=== PATIENT | female | born 1985 | race Caucasian/White ===

== ENCOUNTER 2022-07-13 15:16 | Emergency (ER) | payer BC, OTHER ==
[~2022-07-13] VITALS: Ht 162 cm; Wt 74.0 kg
[2022-07-13 16:00] LABS: BASOPHILS % (AUTO) 0 % (0-10); EOSINOPHILS % (AUTO) 0 % (0-10); HEMATOCRIT 41 % (35-52); HEMOGLOBIN 13.7 g/dL (11.5-16.0); LYMPHOCYTES # (AUTO) 2.7 10^3/uL (1.0-4.0); LYMPHOCYTES % (AUTO) 26 % (12-44); MEAN CORPUSCULAR HEMOGLOBIN 32 pg (25-34); MEAN CORPUSCULAR HGB CONC 33 g/dL (32-36); MEAN CORPUSCULAR VOLUME 95 fL (80-99); MEAN PLATELET VOLUME 10.3 fL (9.0-12.2); MONOCYTES # (AUTO) 0.4 10^3/uL (0.0-1.0); MONOCYTES % (AUTO) 4 % (0-12); NEUTROPHILS # (AUTO) 7.2 10^3/uL (1.8-7.8); NEUTROPHILS % (AUTO) 69 % (42-75); PLATELET COUNT 331 10^3/uL (130-400); WHITE BLOOD COUNT 10.4 10^3/uL (4.3-11.0)
[2022-07-13] MEDS ORDERED: ASPIRIN 81 MG CHEW (CHILDREN'S ASA) PO ONE (16:00)
--- NOTE | 2022-07-13 16:01 | ED Chest Pain ---
General Chief Complaint: Chest Pain Stated Complaint: CHEST TIGHTNESS/PRESSURE/ELEV BP Nursing Triage Note: TO ROOM 08 WITH COMPLAINTS OF CHEST PAIN STARTING THIS AM. Source: patient Exam Limitations: no limitations History of Present Illness Date Seen by Provider: July 13, 2022 Time Seen by Provider: 15:36 Initial Comments Here with report of chest tightness/squeezing that has been going on pretty much all day. She worked all day and then mentioned it at the end of her shift. She had recommendations to follow-up here. 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 She states that she is not sure if this is a chest pain issue or if it is her anxiety. She does have history of anxiety that she does not take any medicines for it she is a little fearful of that. She is new to the area and has not established primary care yet. She denies fevers, chills, nausea, vomiting, sweating or breathing problems. No recent surgery, long plane trips or trauma. No history of blood clots. She does not smoke. No significant family history of cardiac events. Does admit to fatigue for the last month but states that that may be stress related as well. Timing/Duration: other (8 hours) Severity/Quality: mild, moderate, pressure, tightness Location: central Radiation: no radiation Activities at Onset: none Prior CP/Workup: no prior cardiac workup Modifying Factors: improves with rest ASA po [employer]: No NTG SL [employer]: No Associated Symptoms: No back pain; fatigue (For the last month); No fever/chil ls, No nausea/vomiting, No shortness of breath, No syncope, No weakness Allergies and Home Medications Allergies Coded Allergies: No Known Drug Allergies (Unverified , 07/13/22) Patient Home Medication List Home Medication List Reviewed: Yes Review of Systems Review of Systems Constitutional: see HPI; No chills, No fever EENTM: No Symptoms Reported Respiratory: Denies Cough, Denies Shortness of Air Cardiovascular: Chest Pain; Denies Edema, Denies Lightheadedness Gastrointestinal: Denies Nausea, Denies Vomiting Genitourinary: No Symptoms Reported Musculoskeletal: no symptoms reported Skin: no symptoms reported Psychiatric/Neurological: Anxiety; Denies Weakness Past Saewmqp-Qsjbie-Hofjvz Hx Patient Social History Tobacco Use?: No Substance use?: No Alcohol Use?: No Past Medical History Surgeries: No Respiratory: No Cardiac: No Neurological: No Genitourinary: No Gastrointestinal: No Family Medical History Reviewed Nursing Family Hx Physical Exam Vital Signs Vital Signs - First Documented 07/13/22 07/13/22 15:20 15:57 Temp 36.3 Pulse 99 Resp 16 B/P (MAP) 151/94 (113) Pulse Ox 99 O2 Delivery Room Air Capillary Refill : Height, Weight, BMI Height: '" Weight: lbs. oz. kg; 28.00 BMI Method: General Appearance: No Apparent Distress, WD/WN HEENT: PERRL/EOMI, Pharynx Normal Neck: Non Tender, Supple Respiratory: Lungs Clear, Normal Breath Sounds Cardiovascular: Regular Rate, Rhythm, No Murmur, Other (Heart rate initially mid 90s but then went to low 80s after conversation and reassurance.) Gastrointestinal: Non Tender, Soft Extremity: Normal Range of Motion, Non Tender Neurologic/Psychiatric: Alert, Oriented x3 Skin: Normal Color, Warm/Dry Progress/Results/Core Measures Results/Orders Lab Results Laboratory Tests Test 07/13/22 15:27 Range/Units White Blood Count 10.4 4.3-11.0 10^3/uL Red Blood Count 4.35 3.80-5.11 10^6/uL Hemoglobin 13.7 11.5-16.0 g/dL Hematocrit 41 35-52 % Mean Corpuscular Volume 95 80-99 fL Mean Corpuscular Hemoglobin 32 25-34 pg Mean Corpuscular Hemoglobin Concent 33 32-36 g/dL Red Cell Distribution Width 12.4 10.0-14.5 % Platelet Count 331 130-400 10^3/uL Mean Platelet Volume 10.3 9.0-12.2 fL Immature Granulocyte % (Auto) 1 % Neutrophils (%) (Auto) 69 42-75 % Lymphocytes (%) (Auto) 26 12-44 % Monocytes (%) (Auto) 4 0-12 % Eosinophils (%) (Auto) 0 0-10 % Basophils (%) (Auto) 0 0-10 % Neutrophils # (Auto) 7.2 1.8-7.8 10^3/uL Lymphocytes # (Auto) 2.7 1.0-4.0 10^3/uL Monocytes # (Auto) 0.4 0.0-1.0 10^3/uL Eosinophils # (Auto) 0.0 0.0-0.3 10^3/uL Basophils # (Auto) 0.0 0.0-0.1 10^3/uL Immature Granulocyte # (Auto) 0.1 0.0-0.1 10^3/uL Prothrombin Time 13.3 12.2-14.7 SEC INR Comment 1.0 0.8-1.4 Activated Partial Thromboplast Time 28 24-35 SEC D-Dimer 0.29 0.00-0.49 UG/ML Sodium Level 138 135-145 MMOL/L Potassium Level 3.5 L 3.6-5.0 MMOL/L Chloride Level 106 98-107 MMOL/L Carbon Dioxide Level 22 21-32 MMOL/L Anion Gap 10 5-14 MMOL/L Blood Urea Nitrogen 10 7-18 MG/DL Creatinine 0.76 0.60-1.30 MG/DL Estimat Glomerular Filtration Rate 103 BUN/Creatinine Ratio 13 Glucose Level 88 70-105 MG/DL Calcium Level 9.1 8.5-10.1 MG/DL Corrected Calcium 8.7 8.5-10.1 MG/DL Magnesium Level 2.0 1.6-2.4 MG/DL Total Bilirubin 1.0 0.1-1.0 MG/DL Aspartate Amino Transf (AST/SGOT) 17 5-34 U/L Alanine Aminotransferase (ALT/SGPT) 19 0-55 U/L Alkaline Phosphatase 58 40-136 U/L Myoglobin 19.4 10.0-92.0 NG/ML Troponin I < 0.028 <0.028 NG/ML Total Protein 7.6 6.4-8.2 GM/DL Albumin 4.5 3.2-4.5 GM/DL My Orders Orders - MELY AREVALO MD Ekg Tracing (07/13/22 15:20) Cbc With Automated Diff (07/13/22 15:53) Magnesium (07/13/22 15:53) Chest 1 View, Ap/Pa Only (07/13/22 15:53) Comprehensive Metabolic Panel (07/13/22 15:53) Myoglobin Serum (07/13/22 15:53) Protime With Inr (07/13/22 15:53) Partial Thromboplastin Time (07/13/22 15:53) O2 (07/13/22 15:53) Monitor-Rhythm Ecg Trace Only (07/13/22 15:53) Lipid Panel (07/14/22 06:00) Ed Iv/Invasive Line Start (07/13/22 15:53) Fibrin Degradation Products (07/13/22 15:53) Troponin I [place] (07/13/22 15:53) Aspirin Chewable Tablet (Baby Aspirin Ch (07/13/22 16:00) Alprazolam Tablet (Xanax Tablet) (07/13/22 17:44) Medications Given in ED Current Medications Medications Dose Ordered Sig/Lacho Route Start Time Stop Time Status Last Admin Dose Admin Aspirin 324 mg ONCE ONCE PO 07/13/22 16:00 07/13/22 16:01 DC 07/13/22 15:57 324 MG Vital Signs/I&O 07/13/22 07/13/22 15:20 15:57 Temp 36.3 Pulse 99 Resp 16 B/P (MAP) 151/94 (113) Pulse Ox 99 100 O2 Delivery Room Air Blood Pressure Mean: 113 Progress Progress Note : Progress Note Seen and evaluated. IV, labs, EKG and chest x-ray ordered. ASA 324 mg p.o. ordered. Labs include CBC, CMP, troponin and D-dimer as well as myoglobin. Patient low risk for cardiac event but we will evaluate current event with labs. Monitor patient. Differential diagnosis includes cardiac event, pulmonary embolism, anxiety 6: Chest x-ray shows no acute findings on my interpretation. Labs in total are unremarkable with CBC that is grossly normal, CMP grossly normal with normal LFTs and normal serum creatinine. Coags are normal. D-dimer is negative. Troponin and myoglobin are negative. Overall she is feeling better. She still feels a little anxious. Xanax 0.5 mg p.o. ordered. Patient's mother is here. Mother will take her home. I do not see any indication for admission or further evaluation at this point. I did discuss with her about follow-up with cardiology and I will give her the name of 2 of the coordinator cardiopulmonary services. Also discussed follow-up with primary care for further discussion of anxiety and depression. She states that she will. Discharged home with return precautions. Patient verbalized understanding of instructions and agreement with plan. Initial ECG Impression Date: July 13, 2022 Initial ECG Impression Time: 15:26 Initial ECG Rate: 113 Comment Sinus tachycardia with normal axis. No evidence of ST elevation IA. Wandering baseline noted. Interpreted by me. Diagnostic Imaging Diagonstic Imaging: Xray Plain Films/CT/US/NM/MRI: chest Comments [facility] [place], [place] NAME: ISELA STOCKTON [facility] REC#: [id number] PT STATUS: REG ER : 1985 PHYSICIAN: MELY AREVALO MD ADMIT DATE: 07/13/22/ER Signed Date of Exam:07/13/22 CHEST 1 VIEW, AP/PA ONLY CLINICAL INDICATION: Patient with chest pain. EXAM: Portable chest x-ray upright view. COMPARISON: None. FINDINGS: Lungs/pleura: Lungs are clear. There is no pneumothorax. There is no pleural effusion. Mediastinum: Unremarkable. Pulmonary vasculature: Unremarkable. Heart: Unremarkable. Bones/extrathoracic soft tissue: Unremarkable. IMPRESSION: There is no radiographic evidence of acute cardiopulmonary process. Dictated by: Dictated on workstation # [id number] Dict: 07/13/22 1615 Trans: 07/13/22 1739 CVB [id number] Interpreted by: SOLIS SHUKLA MD Electronically signed by: SOLIS SHUKLA MD 07/13/22 1739 Departure Impression Primary Impression: Chest pain Qualified Codes: R07.9 - Chest pain, unspecified Additional Impression: Anxiety Disposition: 01 HOME, SELF-CARE Condition: Improved Departure-Patient Inst. Decision time for Depature: 17:51 Referrals: ANAHI OSBORNE MD [facility] LOY FOY MD Patient Instructions: Chest Pain (DC), Anxiety, Adult (DC) Add. Discharge Instructions: All discharge instructions reviewed with patient and/or family. Voiced understanding. It is important that you follow-up with primary care to further discuss your symptoms and potentially for treatment for anxiety. Also important is follow-up with cardiology. You may follow-up with the coordinator cardiopulmonary services listed or of your choosing. You may follow-up with [facility] as well. Return for worse pain, breathing problems, weakness, vomiting, sweating or other concerns as needed. You may take Tylenol/acetaminophen 1000 mg every 6-8 hours as needed for pain. You might try iper-pdh-[id number] acid corsage maker such as omeprazole and or Pepcid/famotidine per package directions. MELY AREVALO MD July 13, 2022 16:01
[2022-07-13 16:05] LABS: ALBUMIN 4.5 GM/DL (3.2-4.5); POTASSIUM 3.5 MMOL/L (3.6-5.0)
[2022-07-13 16:06] LABS: CALCIUM 9.1 MG/DL (8.5-10.1)
[2022-07-13 16:07] LABS: TOTAL PROTEIN 7.6 GM/DL (6.4-8.2)
[2022-07-13 16:11] LABS: CREATININE SERUM 0.76 MG/DL (0.60-1.30)
[2022-07-13 16:16] LABS: PROTHROMBIN TIME PATIENT 13.3 SEC (12.2-14.7)
--- NOTE | 2022-07-13 16:18 | Diagnostic Imaging Report ---
CLINICAL INDICATION: Patient with chest pain. EXAM: Portable chest x-ray upright view. COMPARISON: None. FINDINGS: Lungs/pleura: Lungs are clear. There is no pneumothorax. There is no pleural effusion. Mediastinum: Unremarkable. Pulmonary vasculature: Unremarkable. Heart: Unremarkable. Bones/extrathoracic soft tissue: Unremarkable. IMPRESSION: There is no radiographic evidence of acute cardiopulmonary process. Dictated by: Dictated on workstation # [id number]
[2022-07-13] MEDS ORDERED: ALPRAZolam 0.5 MG (XANAX) TAB PO STA (17:44)
[2022-07-13 18:30] VITALS: BP 115/75
== END 2022-07-13 18:30 | disposition home or self-care (01) ==
LOC: EDUNIT# 15:16 → ER 15:20
DX: R07.89 Other chest pain (principal); F41.9 Anxiety disorder, unspecified; Z28.311 Partially vaccinated for COVID-19
CPT/HCPCS: 36415; 71045; 80053; 83735; 83874; 84484; 85025; 85379; 85610; 85730; 93005; 93041